=== PATIENT | female | born 1995 | race Caucasian/White ===

== ENCOUNTER 2016-10-30 14:49 | Emergency (ER) | payer MEDICAID, OTHER ==
[~2016-10-30] VITALS: Ht 165.1 cm; Wt 78.0 kg
[~2016-10-30 14:49] MED LIST: AUGM875T PO; CEPH-460 PO; MMW SWISH-SWAL; Z.0.BCPILL PO
[2016-10-30 14:50] VITALS: BP 145/94; PULSE 120; RESP 15; TEMP 99.2; O2SAT 99
[2016-10-30] MEDS ORDERED: CLIN1CAP6 PO (15:31)
[2016-10-30] MEDS ORDERED: CILO0.3S RIGHT EAR (15:31)
--- NOTE | 2016-10-30 15:35 | PD ---
HPI Chief Complaint: ENT Complaint Time Seen by Provider: 15:05 Travel History International Travel<30 days: No Contact w/Intl Traveler<30days: No Traveled to known affect area: No History of Present Illness HPI 21-year-old female since emergency Department for evaluation of right ear pain and swelling 2 days. Patient reports she had the ric of helix pierced approximately 2 months ago. She reports pain and swelling at the site of the piercing 2 days ago. She removed the piercing at the time. She reports the pain and swelling has increased since. She reports mild drainage from the ear. Symptoms severity moderate. No alleviating or aggravating factors. Pain scale 4-10. She denies fever or chills, headache, neck pain, chest pain, shortness breath, nausea, vomiting, abdominal pain. PFSH Past Medical History Narrative Medical Significant only for asthma Anxiety: Yes Diminished Hearing: No Tetanus Vaccination: < 5 Years Influenza Vaccination: No ?: Unknown LMP: 4 WEEKS : 0 : 1 Past Surgical History Surgical History: No Previous Surgery Social History Alcohol Use: Yes (Occ.) Tobacco Use: Yes (3/4 PPD) Substance Use: Yes (Marijuana daily, used ecstasy) Allergies-Medications (Allergen,Severity, Reaction): Coded Allergies: Latex (Verified Allergy, Severe, Rash, 10/30/16) Reported Meds & Prescriptions Reported Meds & Active Scripts Active Clindamycin (Clindamycin HCl) 300 Mg Cap 300 Mg PO Q6H Ciloxan Opth Drops (Ciprofloxacin HCl) 0.3% Soln 10 Drop RIGHT EAR DAILY Keflex (Cephalexin) 500 Mg Cap 500 Mg PO Q6H 7 Days Augmentin 875 mg Tab (Amoxicillin & Pot Clavulanate 875 mg Tab) 875 Mg Tab 875 Mg PO BID Magic Mouthwash-Diphenhy Formula (Lidocaine/Diphenhydr/Alum/Mg/Simeth) Ml 10 Ml SWISH-SWAL Q3H MAGIC MOUTHWASH=MIX 1/3 VISCOUS LIDOCAINE(60 ML),1/3 MAALOX(60 ML),AND 1/3BENADRYL(60 ML) TO EQUAL 180 ML TOTAL. Reported Control Pills (Miscellaneous Medication) Tab 1 Tab PO DAILY Review of Systems Except as stated in HPI: all other systems reviewed are Neg General / Constitutional: No: Fever Eyes: No: Visual changes HENT: Positive: Ear Discharge, Other (external ear pain and swelling) Cardiovascular: No: Chest Pain or Discomfort Respiratory: No: Shortness of Breath Gastrointestinal: No: Abdominal Pain Physical Exam Narrative GENERAL: Well-nourished, well-developed patient. SKIN: Focused skin assessment warm/dry. Erythema and mild swelling of right external ear. HEAD: Normocephalic. EYES: No scleral icterus. No injection or drainage. EAR: Right ear erythema and mild swelling of the external ear at the location of the innermost cartilage fold. Mild canal swelling with yellowish discharge. Limited view of TM , Mild TM erythema and no perforation. No mastoid tenderness/erythema/swelling. NECK: Supple, trachea midline. No JVD or lymphadenopathy. CARDIOVASCULAR: Regular rate and rhythm without murmurs, gallops, or rubs. RESPIRATORY: Breath sounds equal bilaterally. No accessory muscle use. GASTROINTESTINAL: Abdomen soft, non-tender, nondistended. MUSCULOSKELETAL: No cyanosis, or edema. BACK: Nontender without obvious deformity. No CVA tenderness. Data Data Last Documented VS Vital Signs Date Time Temp Pulse Resp B/P Pulse Ox O2 Delivery O2 Flow Rate FiO2 10/30/16 14:50 99.2 120 15 145/94 99 MDM Medical Decision Making Medical Screen Exam Complete: Yes Emergency Medical Condition: Yes Differential Diagnosis Otitis externa, cellulitis of the external ear caused by piercing. Narrative Course 21-year-old female since emergency Department for evaluation of right ear pain and swelling 2 days. Patient reports she had the ric of helix pierced approximately 2 months ago. She reports pain and swelling at the site of the piercing 2 days ago. She removed the piercing at the time. She reports the pain and swelling hasn't increased since. She reports mild drainage from the ear. She denies fever or chills. On exam she has mild swelling and erythema of the helix of the ear. She also has has mild canal swelling with yellowish discharge. She has no mastoid tenderness/swelling/erythema. Exam findings consistent with external ear cellulitis and otitis externa. The cellulitis appears to be at the source of the piercing site. Patient is currently uninsured and requesting antibiotics that she can afford to pay for out of pocket. I think the patient would benefit from quinolone otic drops as well as oral antibiotics. Quinolone otic drops are often very expensive. I discussed this with David pharmacist here in [facility] he agrees that ciprofloxacin ophthalmic drops can be used to treat external otitis which is much more affordable for the patient and she will be prescribed that. Return precautions discussed with patient. She verbalizes understanding. Diagnosis Primary Impression: Otitis externa Qualified Code: H60.501 - Acute otitis externa of right ear, unspecified type Additional Impression: Cellulitis of external ear Qualified Code: H60.11 - Cellulitis of external ear, right Referrals: [facility] Primary Care Physician Additional Instructions: Take the antibiotics as prescribed. Use the eardrops as prescribed. The [id number] Motrin and/or Tylenol as needed for pain. Return to the emergency department if he developed new or worsening symptoms such as increasing pain, fever, chills. Scripts Clindamycin 300 Mg Nyc455 Mg PO Q6H #40 CAP Ref 0 Prov:Carol Mcleod 10/30/16 Ciprofloxacin Opth Drops (Ciloxan Opth Drops)0.3% Soln10 Drop RIGHT EAR DAILY # 1 BOTTLE Ref 0 Prov:Carol Mcleod 10/30/16 Disposition: 01 DISCHARGE HOME Condition: Stable Carol Mcleod Oct 30, 2016 15:35
== END 2016-10-30 15:48 | disposition home or self-care (01) ==
LOC: PHEFT 14:49
DX: H60.501 Unspecified acute noninfective otitis externa, right ear (principal); H60.11 Cellulitis of right external ear; F17.210 Nicotine dependence, cigarettes, uncomplicated; F12.10 Cannabis abuse, uncomplicated; F19.90 Other psychoactive substance use, unspecified, uncomplicated
CPT/HCPCS: 99283

== ENCOUNTER 2016-11-01 17:43 | Emergency (ER) | payer SELFPAY ==
[~2016-11-01] VITALS: Ht 162.6 cm; Wt 77.0 kg
[~2016-11-01 17:43] MED LIST changes: +CILO0.3S RIGHT EAR; +CLIN1CAP6 PO
[2016-11-01 17:45] VITALS: BP 131/85; PULSE 115; RESP 17; TEMP 98.6; O2SAT 98
[2016-11-01] MEDS ORDERED: predniSONE 20 MG TAB PO ONE (18:15)
[2016-11-01] MEDS ORDERED: MECLIZINE HCL 25 MG TAB PO ONE (18:15)
--- NOTE | 2016-11-01 18:18 | PD ---
HPI Chief Complaint: ENT Complaint Time Seen by Provider: 18:10 Travel History International Travel<30 days: No Contact w/Intl Traveler<30days: No Traveled to known affect area: No History of Present Illness HPI 21-year-old female presents the emergency department with ongoing right ear pain and swelling with associated dizziness and nausea. Patient was seen 2 days ago at [place] and treated for severe right otitis externa, with Cipro drops, and oral clindamycin. Patient states the pain is about the same, but she continues to have vertigo and nausea with occasional vomiting. She denies fever or chills. She has not been taking ibuprofen or Tylenol. She states she can tell the drops aren't going down inside. She denies sore throat or difficulty swallowing. She denies any other significant acute symptoms. She is allergic to latex PFS Past Medical History Anxiety: Yes Diminished Hearing: No ?: Not : 0 : 1 Social History Alcohol Use: Yes (Occ.) Tobacco Use: Yes (/ PPD) Substance Use: Yes (Marijuana daily, used ecstasy) Allergies-Medications (Allergen,Severity, Reaction): Coded Allergies: Latex (Verified Allergy, Severe, Rash, 11/01/16) Reported Meds & Prescriptions Reported Meds & Active Scripts Active Clindamycin (Clindamycin HCl) 300 Mg Cap 300 Mg PO Q6H Ciloxan Opth Drops (Ciprofloxacin HCl) 0.3% Soln 10 Drop RIGHT EAR DAILY Keflex (Cephalexin) 500 Mg Cap 500 Mg PO Q6H 7 Days Augmentin 875 mg Tab (Amoxicillin & Pot Clavulanate 875 mg Tab) 875 Mg Tab 875 Mg PO BID Magic Mouthwash-Diphenhy Formula (Lidocaine/Diphenhydr/Alum/Mg/Simeth) Ml 10 Ml SWISH-SWAL Q3H MAGIC MOUTHWASH=MIX 1/3 VISCOUS LIDOCAINE(60 ML),1/3 MAALOX(60 ML),AND 1/3BENADRYL(60 ML) TO EQUAL 180 ML TOTAL. Reported Control Pills (Miscellaneous Medication) Tab 1 Tab PO DAILY Review of Systems Except as stated in HPI: all other systems reviewed are Neg General / Constitutional: No: Fever, Chills Eyes: No: Visual changes HENT: Positive: Vertigo, Ear Discharge, Earache, No: Headaches, Lightheadedness, Sore Throat, Rhinitis, Rhinorrhea, Congestion, Nosebleed, Neck Stiffness, Neck Pain, Gingival Bleeding, Dental Difficulties Cardiovascular: No: Chest Pain or Discomfort Respiratory: No: Shortness of Breath, Wheezing Gastrointestinal: Positive: Nausea, Vomiting, No: Diarrhea, Abdominal Pain Genitourinary: No: Dysuria Musculoskeletal: No: Pain Skin: No Rash Neurologic: No: Weakness Psychiatric: No: Depression Endocrine: No: Polydipsia Hematologic/Lymphatic: No: Easy Bruising Physical Exam Narrative GENERAL: Patient appears in mild distress. SKIN: Warm and dry. Normal color. Normal turgor. Patient does have edema to the right pinna and ear canal, but it is not angry red. HEAD: Atraumatic. Normocephalic. Patient has no significant tenderness to the right mastoid sinus with percussion or palpation. EYES: Pupils equal and round. No scleral icterus. No injection or drainage. ENT: No nasal bleeding or discharge. Mucous membranes pink and moist. Pharynx is clear. Airway is patent. Right pinna is mildly to moderately swollen with mild injection and erythema. The ear canal is patent but moderately swollen on the right with mild to moderate erythema. The TM is visible but appears ill and somewhat erythematous. Patient has mild tenderness with movement of the pinna. Palpation of the tragus causes discomfort. Hearing is normal bilaterally. No sinus tenderness to palpation or percussion. NECK: Trachea midline. Supple and nontender.. CARDIOVASCULAR: Regular rate and rhythm. RESPIRATORY: No accessory muscle use. Clear to auscultation. Breath sounds equal bilaterally. GASTROINTESTINAL: Abdomen soft, non-tender, nondistended. Hepatic and splenic margins not palpable. MUSCULOSKELETAL: Extremities without clubbing, cyanosis, or edema. No obvious deformities. NEUROLOGICAL: Awake and alert. No obvious cranial nerve deficits. Motor grossly within normal limits. Five out of 5 muscle strength in the arms and legs. Normal speech. PSYCHIATRIC: Appropriate mood and affect; insight and judgment normal. Data Data Last Documented VS Vital Signs Date Time Temp Pulse Resp B/P Pulse Ox O2 Delivery O2 Flow Rate FiO2 11/01/16 17:45 98.6 115 17 131/85 98 MDM Medical Decision Making Medical Screen Exam Complete: Yes Emergency Medical Condition: Yes Medical Record Reviewed: Yes Differential Diagnosis Severe right otitis externa. Cellulitis. Vertigo. Nausea vomiting. Narrative Course Patient is felt to be overall improving in terms of her infection. Patient is given prednisone 40 mg by mouth now as well as a prescription for 20 mg by mouth twice a day for the next 5 days for the inflammation portion. Patient is given meclizine 25 mg by mouth now for the vertigo. She is given a prescription for 12.5 mg every 6 hours when necessary vertigo. Patient is to continue the clindamycin and Cipro drops as previously prescribed. Patient take Tylenol as needed for pain. Patient should follow up if symptoms are not continuing to improve in the next 48 hours. Diagnosis Primary Impression: Otitis externa Qualified Code: H60.391 - Other infective acute otitis externa of right ear Additional Impression: Vertigo Patient Instructions: Benign Paroxysmal Positional Vertigo (ED), General Instructions, Otitis Externa (ED) Departure Forms: Work Release Enter return to work date: Nov 04, 2016 Additional Instructions: Patient is felt to be overall improving in terms of her infection. Patient is given prednisone 40 mg by mouth now as well as a prescription for 20 mg by mouth twice a day for the next 5 days for the inflammation portion. Patient is given meclizine 25 mg by mouth now for the vertigo. She is given a prescription for 12.5 mg every 6 hours when necessary vertigo. Patient is to continue the clindamycin and Cipro drops as previously prescribed. Patient take Tylenol as needed for pain. Patient should follow up if symptoms are not continuing to improve in the next 48 hours. Med/Other Pt SpecificInfo: Prescription(s) given Disposition: 01 DISCHARGE HOME Condition: Stable Jericho Salomon Nov 01, 2016 18:18
[2016-11-01] MEDS ORDERED: PRED20 PO (18:19)
[2016-11-01] MEDS ORDERED: MECL12.574 PO (18:19)
== END 2016-11-01 18:34 | disposition home or self-care (01) ==
LOC: NEPK 17:43
DX: R42 Dizziness and giddiness (principal); H60.91 Unspecified otitis externa, right ear; F17.210 Nicotine dependence, cigarettes, uncomplicated; F12.10 Cannabis abuse, uncomplicated
CPT/HCPCS: 99283; J7512